=== PATIENT | female | born 2005 | race Caucasian/White ===

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

== ENCOUNTER 2024-09-19 02:02 | Emergency (ER) | payer OTHER, SELFPAY ==
[2024-09-19 02:05] VITALS: PULSE 119; O2SAT 99
[2024-09-19 02:10] VITALS: BP 113/72; PULSE 129; RESP 20; TEMP 36.8; O2SAT 97
[2024-09-19 02:15] VITALS: BMI 35.4
[2024-09-19 02:36] LABS: Basophils Percent Auto 0.1 % (0-2); Eosinophils Absolute Auto 0.1 X10*3/uL (0.0-0.4); Eosinophils Percent Auto 0.4 % (0-4); Hematocrit 36.9 % (37.0-47.0); Hemoglobin 12.1 g/dl (12.0-16.0); Imm Gran Abs Auto 0.04 X10*3/uL (0.00-0.03); Imm Gran Pct Auto 0.3 % (0.0-0.4); Lymphocytes Absolute Auto 0.5 X10*3/uL (1.2-4.9); Lymphocytes Percent Auto 3.8 % (20-40); MANUAL DIFF FLAG SCAN; Mean Corpuscular HGB Conc 32.8 g/dl (31.0-35.0); Mean Corpuscular Volume 79.4 fL (80.0-98.0); Mean Platelet Volume 8.6 fL (9.4-12.3); Monocytes Absolute Auto 0.4 X10*3/uL (0.1-1.2); Monocytes Percent Auto 2.8 % (2-11); Neutrophils Percent Auto 92.6 % (45-73); Platelet Count 351 X10*3/uL (160-400); Red Blood Count 4.65 X10*6/uL (4.20-5.50); Red Cell Distribution Width 13.8 % (11.0-16.0); SCAN SMEAR FLAG 1; White Blood Count 14.1 X10*3/uL (4.8-10.8)
--- NOTE | 2024-09-19 02:37 | ED.NAVMDI ---
HPI - Nausea/Vomiting/Diarrhea General Chief complaint: Nausea/Vomiting/Diarrhea Stated complaint: VOMITING Time Seen by Provider: 09/19/24 02:35 Source: patient Mode of arrival: ambulatory Limitations: no limitations History of Present Illness ED Provider: HPI Narrative: Patient no significant past medical history comes here for abdominal cramping with vomiting since 21:00 vomited about 7 times with cramping no fever no chills no upper respiratory symptoms no diarrhea no other family member sick Related Data Home Medications ?Medication ?Instructions ?Recorded ?Confirmed mirtazapine 15 mg tablet 22.5 mg PO BEDTIME 08/16/21 08/16/21 Previous Rx's ?Medication ?Instructions ?Recorded nitrofurantoin 100 mg PO Q12H 1 day #1 cap 08/21/21 monohydrate/macrocrystals 100 mg capsule venlafaxine 75 mg capsule,extended 75 mg PO DAILY 30 days #30 caps 08/21/21 release 24 hr ondansetron 4 mg disintegrating 4 mg PO Q6-8H PRN nausea and 09/19/24 tablet vomiting #7 tabs Allergies Allergy/AdvReac Type Severity Reaction Status Date / Time No Known Allergies Allergy Verified 09/19/24 02:17 Review of Systems Review of Systems: Yes all other systems are reviewed and are negative PMFSH Past Medical History Medical History Dissociative disorder MDD (major depressive disorder), recurrent episode, moderate Social History Social History Household Members: Family Household Members Other:: Mother and sister Housing: Apartment Do you presently have visiting nurse or other home services: No Alcohol intake: never Patient Tobacco Use Status: Never used Tobacco Smoked in Last 30 Days: No e-Cigarette/Vaping Use: Never Used Second Hand Smoke Exposure: No Use of substances other than those prescribed or required for medical reasons: No Substance Use Type: Marijuana Advance Directives: No Advance Directives Information Provided: Yes Do you have a plan to hurt others: No Plan service: No Sexual orientation: Did not discuss. Physical Exam Vital Signs: Vital Signs: Last Vital Signs Temp 98.2 F 09/19/24 02:10 Pulse 129 H 09/19/24 02:10 Resp 20 09/19/24 02:10 BP 113/72 09/19/24 02:10 Pulse Ox 97 09/19/24 02:10 O2 Del Method Room Air 09/19/24 02:10 BMI result Body Mass Index 35.4 Appearance: Alert. Oriented X3. No acute distress. Eyes: No pallor or icterus ENT: Pharynx normal. Oral Mucosa moist Neck: Normal inspection. Neck supple. CVS: Normal heart rate and rhythm. Pulses normal. Respiratory: No respiratory distress. Equal air entry bilateral, no wheezing/rales/rhonchi Abdomen: Soft and nontender. Bowel sounds are present, no mass palpable, no CVA tenderness Skin: Skin warm and dry. Normal skin color. Normal skin turgor. Extremities: No lower extremity edema. No calf tenderness Neuro: Oriented X 3. No motor deficit. Medications Administered Discontinued Medications Generic Name Dose Route Start Last Admin Trade Name Freq PRN Reason Stop Dose Admin Sodium Chloride 1,000 mls @ 999 mls/hr 09/19/24 02:41 09/19/24 05:00 Ns IV 09/19/24 03:41 Infused .Q1H1M ONE Infusion Ondansetron HCl 4 mg 09/19/24 02:41 09/19/24 02:49 Ondansetron Hcl 4 Mg/2 Ml Vial IVPUSH 09/19/24 02:42 4 mg ONCE ONE Administration Medical Decision Making Medical Decision Making [facility] Narrative: Patient has acute vomiting likely vomitus viral no significant abdominal pain responded to IV fluids and IV Zofran feeling much better taking p.o. fluids discharge patient home labs are stable Lab Data [facility] Lab Attestation statement: I reviewed the patient's lab results. 09/19/24 02:26 09/19/24 02:26 Labs: Lab Results 09/19/24 Range/Units 02:26 WBC 14.1 H (4.8-10.8) X10*3/uL RBC 4.65 (4.20-5.50) X10*6/uL Hgb 12.1 (12.0-16.0) g/dl Hct 36.9 L (37.0-47.0) % MCV 79.4 L (80.0-98.0) fL MCH 26.0 L (27.0-33.0) pg MCHC 32.8 (31.0-35.0) g/dl RDW 13.8 (11.0-16.0) % Plt Count 351 (160-400) X10*3/uL MPV 8.6 L (9.4-12.3) fL Immature Gran % (Auto) 0.3 (0.0-0.4) % Neut % (Auto) 92.6 H (45-73) % Lymph % (Auto) 3.8 L (20-40) % Bee % (Auto) 2.8 (2-11) % Eos % (Auto) 0.4 (0-4) % Baso % (Auto) 0.1 (0-2) % Lymph # (Auto) 0.5 L (1.2-4.9) X10*3/uL Bee # (Auto) 0.4 (0.1-1.2) X10*3/uL Eos # (Auto) 0.1 (0.0-0.4) X10*3/uL Baso # (Auto) 0.0 (0.0-0.2) X10*3/uL Abs Immat Gran (auto) 0.04 H (0.00-0.03) X10*3/uL Absolute Neuts (auto) 13.0 H (2.0-8.3) x10*3/uL Absolute Nucleated RBC 0.000 (0.0-0.012) X10*3/uL Nucleated RBC % (auto) 0.0 (0.0-0.2) /100WBC Smear Tech's Comments VERIFIED Sodium 139 (135-145) mmol/L Potassium 4.1 (3.3-5.1) mmol/L Chloride 105 (96-108) mmol/L Carbon Dioxide 26 (22-29) mmol/L Anion Gap 12 (12-20) BUN 13 (9-16) mg/dL Creatinine 0.72 (0.5-1.4) mg/dL Estim Creat Clear Calc 134.3 Estimated GFR > 60 Random Glucose 127 H (60-115) mg/dL Calcium 9.3 D (8.4-10.2) mg/dL Total Bilirubin 0.3 (0.0-1.0) mg/dL AST 21 (5-31) U/L ALT 23 (0-31) U/L Alkaline Phosphatase 71 (39-117) U/L Total Protein 8.5 H (6.5-8.0) g/dL Albumin 4.4 (3.5-5.0) g/dL Lipase 12 (8-78) U/L Influenza Type A (PCR) NEGATIVE (Negative) Influenza Type B (PCR) NEGATIVE (Negative) RSV RNA Qual (PCR) NEGATIVE (Negative) SARS-CoV-2 RNA (RT-PCR) NEGATIVE (Negative) Discharge Plan Discharge Clinical Impression: Acute nausea with nonbilious vomiting Patient Disposition: Home, Self-Care Instructions: Acute Nausea and Vomiting (ED) Additional Instructions: Drink plenty of fluids Take medicine for nausea and vomiting Report to ER if not better Prescriptions: New ondansetron 4 mg tablet,disintegrating 4 mg PO Q6-8H PRN (Reason: nausea and vomiting) Qty: 7 0RF No Action mirtazapine 15 mg Tablet 22.5 mg PO BEDTIME nitrofurantoin monohyd/m-cryst 100 mg Capsule 100 mg PO Q12H 1 Days Qty: 1 0RF venlafaxine 75 mg Capsule,Extended Release 24hr 75 mg PO DAILY 30 Days Qty: 30 0RF Print Language: Trinidadian
[2024-09-19] MEDS: 0.9 % Sodium Chloride 1,000 ML 999 ML IV (02:48)
[2024-09-19] MEDS: ondansetron HCL 4 MG/2 ML VIAL IVPUSH (02:49)
[2024-09-19 03:01] LABS: Alanine Aminotransferase 23 U/L (0-31); Albumin Level 4.4 g/dL (3.5-5.0); Alkaline Phosphatase 71 U/L (39-117); Anion Gap 12 (12-20); Aspartate Amino Transferase 21 U/L (5-31); Bilirubin Total 0.3 mg/dL (0.0-1.0); Blood Urea Nitrogen 13 mg/dL (9-16); Calcium 9.3 mg/dL (8.4-10.2); Carbon Dioxide 26 mmol/L (22-29); Chloride 105 mmol/L (96-108); Creatinine Clr Calc Pharmacy 134.3; Estimated Glomerular Filt Rate > 60; Glucose Random 127 mg/dL (60-115); Lipase 12 U/L (8-78); Potassium 4.1 mmol/L (3.3-5.1); Sodium 139 mmol/L (135-145); Total Protein 8.5 g/dL (6.5-8.0)
[2024-09-19 03:04] LABS: SLIDE REVIEW VERIFIED
[2024-09-19 03:20] LABS: Influenza A PCR NEGATIVE (Negative); Influenza B PCR NEGATIVE (Negative); Resp Syncy Virus RNA Qual PCR NEGATIVE (Negative); SARS COV2 PCR INHOUSE NEGATIVE (Negative)
--- NOTE | 2024-09-19 04:34 | PC.NURSE ---
Po givenPO challenged. Pt took a few sips of water and ate one cracker and feels some nausea but no vomiting. MD aware.
[2024-09-19 05:10] VITALS: BP 115/65; PULSE 131; RESP 14; TEMP 36.6; O2SAT 99
[2024-09-19 05:17] VITALS: BP 115/65; PULSE 131; RESP 14; TEMP 36.6; O2SAT 99
== END 2024-09-19 05:25 | disposition home or self-care (01) ==
PROVIDERS: Emergency Provider Internal Medicine
DX: R11.2 Nausea with vomiting, unspecified (principal); F12.90 Cannabis use, unspecified, uncomplicated; Z03.818 Encounter for observation for suspected exposure to other biological agents ruled out
CPT/HCPCS: 0241U; 80053; 83690; 85025; 96361; 96374; 99284; J2405

== ENCOUNTER 2024-12-10 11:10 | Outpatient (REF) | payer MEDICAID, SELFPAY ==
--- OUTSIDE RECORDS SUMMARY | 2024-12-10 12:32 | XMS_ITS | Encounter Summary ---
Author Organization [facility] Address [address] [place] [phone] Phone Care Team Providers Care District Leader Name Role Phone Marion Castanon MD Primary Care Provider [phone] Encounter Details Date Type Department Care Team (Late st Contact Info) Description 08/07/2012 Nurse Only [address] [id number] Social History Tobacco Use Types Packs/Day Years Used Date Smoking Tobacco: Never Assessed Comments Unknown Sex and Gender Information Value Date Recorded Sex Assigned at Not on file Legal Sex Female 4:22 PM EST Gender Identity Not on file Sexual Orientation Not on file documented as of this encounter Nursing Notes * UNKNOWN, HISTORICAL - 08/07/2012 9:22 AM EST Verenice Olivares 2005 NURSE NOTE/VERBAL ORDERS Office/Outpatient Visit Visit Date: Aug 07, 2012 09:22 am Provider: Ally Agrawal RN (Signalling And Communications Engineer: Josephine Mccoy MD; Key Carrier: Ally Agrawal RN) Location: [facility]. ECTIVE: CC: She is here for the Flu Clinic. Presents with Dad HPI: No known chronic health conditions. Fever or illness is not present today. No trouble breathing or hives after eating eggs She has not had a reaction to the flu vaccine or other immunization. Flu vaccine VIS was given today.(interim 03/10/12) There were no questions or concerns voiced at today's visit. OBJECTIVE: Exams: GENERAL APPEARANCE: Alert, active, looks well, mood appropriate RESPIRATORY: Normal respiratory rate and pattern with no distress ASSESSMENT: V04.81 Flu Clinic ORDERS: Procedures Ordered: Flu Vaccine (In-House) Immunization administration (includes percutaneous, intradermal, subcutaneous or intramuscular injec (In-House) PLAN: Flu Clinic Influenza vaccine > 3 yr given No contraindications noted for flu vaccines. Tolerated well, left office in good condition. Orders: Flu Vaccine (In-House) Immunization administration (includes percutaneous, intradermal, subcutaneous or intramuscular injec (In-House) Patient Recommendations: For Flu Clinic: Influenza (Given) CHARGE CAPTURE: Primary Diagnosis: V04.81 Flu Clinic Orders: [id number] Flu Vaccine (In-House) 13013 Immunization administration (includes percutaneous, intradermal, subcutaneous or intramuscular injec (In-House) documented in this encounter Plan of Treatment Not on file documented as of this encounter Visit Diagnoses Not on filedocumented in this encounter Care Teams District Leader Relationship Specialty Start Date End Date Marion Castanon MD [address] [place] [phone] PCP - General Pediatrics 09/18/22 07/17/23 documented as of this encounter
--- OUTSIDE RECORDS SUMMARY | 2024-12-10 12:32 | XMS_ITS | Encounter Summary ---
Author Organization [employer] Address [address] [place] [address] Care Team Providers Care Cover Mat Machine Operator Name Role Phone Jing Patel MD Primary Care Provider [phone] Encounter Details Date Type Department Care Team (Latest Contact Info) Description 12/10/2024 Travel Social History Tobacco Use Types Packs/Day Years Used Date Smoking Tobacco: Former Cigarettes Passive Smoke Exposure: Past Smokeless Tobacco: Never Depression Answer Date Recorded Patient Health Questionnaire-9 Score 14 12/10/2024 Patient Health Questionnaire-9 Score 14 12/10/2024 Last PHQ-9: Questionnaire Data Not on file 0 12/10/2024 Housing Stability Answer Date Recorded What is your housing situation today? I have robert garcia 09/16/[address] you li ve. Do you have problems with any of the following? None of the above 09/16/2024 Food Insecurity Answer Date Recorded Within the past 12 months, y ou worried that your food would run out before you got money to buy more: Sometimes True 2024 Within the past 12 months,th e food you bought just didn't last and you didn't have enough money to get more: Sometimes True 12/10/2024 Transportation Answer Date Recorded In the past 12 months, has l ack of transportation kept you from medical appts, meetings, work or from getting things needed for daily living? Yes, it has kept me from non-medical meetings, work, or getting things that I need 12/10/2024 Utilities Answer Date Recorded In the past 12 months, has t he electric, gas, oil or water company threatened to shut off services in your home? I am not sure 12/10/2024 Depression Answer Date Recorded Patient Health Questionnaire-2 Score 3 12/10/2024 Internet Access Answer Date Recorded Internet Access Q1 Yes 09/16/2024 Internet Access Q2 Not on file 09/16/2024 Comments Unknown Sex and Gender Information Value Date Recorded Sex Assigned at Female 07/09/2022 10:20 AM EDT Legal Sex Female 10:20 AM EDT Gender Identity Male 12/10/2024 10:20 AM EDT Sexual Orientation Choose not to disclose 2021 10:20 AM EDT documented as of this encounter Plan of Treatment Upcoming Encounters Date Type Department Care Team (Late st Contact Info) Description 12/16/2024 11:15 AM EDT Office Visit [facility] [address] [place] [address] Jing Patel MD [address] [place] [phone] documented as of this encounter Visit Diagnoses Not on filedocumented in this encounter Additional Health Concerns Assessment Noted Time PHQ-9 Depression Total Score: 14 025 11:33 AM EDT documented as of this encounter Care Teams Cover Mat Machine Operator Relationship Specialty Start Date End Date Jing Patel MD [address] [place], [place] [phone] PCP - General Family Medicine 08/27/24 documented as of this encounter
--- OUTSIDE RECORDS SUMMARY | 2024-12-10 12:32 | XMS_ITS | Encounter Summary ---
Author Organization [employer] Address [address] [place] [address] Care Team Providers Care Communications Executive Name Role Phone Jing Patel MD Primary Care Provider [phone] Reason for Visit * Reason Onset Date Comments chartprep 12/07/2024 Encounter Details Date Type Department Care Team ([facility] st Contact Info) Description 12/07/2024 Telephone [facility] [address] [place], [place] [phone] Jing Patel MD [address] [place], [place] [phone] chartprep Social History Tobacco Use Types Packs/Day Years Used Date Smoking Tobacco: Former Cigarettes Passive Smoke Exposure: Past Smokeless Tobacco: Never Housing Stability Answer Date Recorded What is your housing situation today? I have robert garcia 09/16/[address] you li ve. Do you have problems with any of the following? None of the above 09/16/2024 Food Insecurity Answer Date Recorded Within the past 12 months, y ou worried that your food would run out before you got money to buy more: Never True 09/16/2024 Within the past 12 months,th e food you bought just didn't last and you didn't have enough money to get more: Never True 04/2025 Transportation Answer Date Recorded In the past 12 months, has l ack of transportation kept you from medical appts, meetings, work or from getting things needed for daily living? No 09/16/2024 Utilities Answer Date Recorded In the past 12 months, has t he electric, gas, oil or water company threatened to shut off services in your home? No 09/16/2024 Internet Access Answer Date Recorded Internet Access Q1 Yes 09/16/2024 Internet Access Q2 Not on file 09/16/2024 Comments Unknown Sex and Gender Information Value Date Recorded Sex Assigned at Female 07/09/2022 10:20 AM EDT Legal Sex Female 10:20 AM EDT Gender Identity Male 12/10/2024 10:20 AM EDT Sexual Orientation Choose not to disclose 2021 10:20 AM EDT documented as of this encounter Miscellaneous Notes * Telephone Encounter - Lilian Joaquin MA - 12/07/2024 11:06 AM EDT ..Chart Prep Labs: not applicable Images: not applicable Vaccines due: Covid 19/ Influenza / Hepatitis C Referrals: Not Applicable Screenings: Not Applicable Overdue care gaps: Sbirt, SDOH, PQ9, Disability , and Oral Health documented in this encounter Plan of Treatment Upcoming Encounters Date Type Department Care Team (Late st Contact Info) Description 12/16/2024 11:15 AM EDT Office Visit [facility] [address] [place] [phone] Jing Patel MD [address] [place] [phone] documented as of this encounter Visit Diagnoses Not on filedocumented in this encounter Care Teams Communications Executive Relationship Specialty Start Date End Date Jing Patel MD [address] [place] [phone] PCP - General Family Medicine 08/27/24 documented as of this encounter
--- OUTSIDE RECORDS SUMMARY | 2024-12-10 12:32 | XMS_ITS | Clinical Summary ---
Author Organization [facility] Address [address] [place] [id number] Phone Care Team Providers Care House Cleaner Supervisor Name Role Phone Unavailable Primary Care Provider Unavailabl e Allergies No known active allergies Medications escitalopram 10 MG tablet 07/14/2021 Active mirtazapine 15 MG tablet 05/19/2021 Active Active Problems Problem Noted Date Diagnosed Date Insomnia due to other mental disorder 06/22/2020 Overview (06/22/2020): History of significant difficult with sleep ( mostly getting to sleep)--may occasionally have prolonged sleep ( 11 hours), but recently has been sleeping only 2-3 hours each night. Correlation with anxiety and depression symptoms likely. Discussed sleep hygiene issues. I suspect she will need MH intervention. Assessment & Plan (06/22/2020 2:59 PM EDT): History of significant difficult with sleep ( mostly getting to sleep)--may occasionally have prolonged sleep ( 11 hours), but recently has been sleeping only 2-3 hours each night. Correlation with anxiety and depression symptoms likely. Discussed sleep hygiene issues. I suspect she will need MH intervention. Anxiety and depression 12/16/2018 Overview (06/22/2020): History of ongoing problems with anxiety and depression. Now describes occasional panic attacks with tachycardia, shakiness, chest pain. Sleep issues also noted which are likely to be related. Discussed. Family is connected to [facility] for therapy and med management. Referral placed Assessment & Plan (06/22/2020 2:52 PM EDT): History of ongoing problems with anxiety and depression. Now describes occasional panic attacks with tachycardia, shakiness, chest pain. Sleep issues also noted which are likely to be related. Discussed. Family is connected to [facility] for therapy and med management. Referral placed Assessment & Plan (12/16/2018 1:22 PM EDT): PSC positive and Verenice reports up and down mood including feelings of sadness and worrying. No thoughts of self-harm or SI. Sibling seen at [facility], so mom has been trying to get Verenice an appointment there. Offered behavioral health services at , declined by family due to distance from home. Will request [facility] to assist with scheduling at [facility]. Discussed signs and symptoms of worsening mood (including safety concerns) that would warrant prompt follow-up or crisis. Urge incontinence of urine 10/10/2017 Overview (04/27/2018): Seen by Urology with giggle incontinence ; no specific treatment. Assessment & Plan (12/16/2018 1:03 PM EDT): Seen by urology in 2018, diagnosed with giggle incontinence . Did not return for recommended imaging or follow-up, though Verenice is still very bothered by her symptoms. Recommended returning to Urology for follow-up. Referral placed, will have referrals send along the scheduling information via [employer] per mom's request. Assessment & Plan (01/29/2018 2:45 PM EDT): Long history of daytime incontinence; typically related to laughing or coughing. May happen 2-3 times a day. Has been wearing adult diapers during the school day. Is interested in referral to consider surgical treatment. In the meantime, I would propose a trial of Ditropan prior to school. Discussed risks and benefits. Assessment & Plan (10/10/2017 12:58 PM EST): Long history of daytime incontinence, often related to laughing. Now fed up , would like to consider treatment options. Refer to Urology or Adolescent Medicine for opinion. Pure hypercholesterolemia 04/25/2016 Overview (06/22/2020): PMH + elevated cholesterol. Recheck has been ordered, but not pursued. Will reorder today. Await results. Assessment & Plan (06/22/2020 2:59 PM EDT): PMH + elevated cholesterol. Recheck has been ordered, but not pursued. Will reorder today. Await results. Assessment & Plan (12/16/2018 1:04 PM EDT): Labs ordered last year though not obtained. New lab orders placed, instructed to have drawn. Assessment & Plan (10/10/2017 12:57 PM EST): PMH + abnormal screening. Recheck as lipid panel today Elevated TSH 04/25/2016 Overview (06/22/2020): PMH + elevated TSH ( repeat labs ordered twice, but never obtained)--will reorder today Assessment & Plan (06/22/2020 2:53 PM EDT): PMH + elevated TSH ( repeat labs ordered twice, but never obtained)--will reorder today Await results. Assessment & Plan (12/16/2018 1:04 PM EDT): History of. Labs ordered last year though not obtained. New lab orders placed, instructed to have drawn. Assessment & Plan (10/10/2017 12:56 PM EST): PMH + elevated TSH. Will recheck TSH and T4 today. Body mass index, pediatric, greater than or equal to 95th percentile for age 0804/13/2016 Assessment & Plan (06/22/2020 2:52 PM EDT): Discussed appropriate nutrition and diet. Avoid non-nutritious foods and snacks. Encourage exercise. (Sixty minutes of physical exercise a day is recommended). Limit screen time. Follow-up at next [facility]. Assessment & Plan (12/16/2018 1:04 PM EDT): Reviewed and discussed nutrition and exercise recommendations. Assessment & Plan (10/10/2017 12:56 PM EST): Discussed appropriate nutrition and diet. Avoid non-nutritious foods and snacks. Encourage exercise. (Sixty minutes of physical exercise a day is recommended). Limit screen time. Follow-up at next [facility]. Previously seen by Peds Endocrine for assessment. Intrinsic eczema 12/03/2014 Assessment & Plan (10/10/2017 12:57 PM EST): Avoid irritants, lubricate the skin ( take a bath for 10-15 minutes in warm water, rinse off soap and shampoo and apply a thick lubricant ), Use a mild soap like Dove, Nutragena or Cetaphil. Avoid bubble baths. Apply moisturizers throughout the day ( the thicker the better). Use steroid creams or ointment when needed BID for up to 10 days. May decrease strength ( to 1% hydrocortisone ointment OTC) when flare-up has significantly improved. Eczema is a chronic condition associated with itching and dryness, often worse in the winter. Recurrence is common. Scratching the rash will make it worse. Resolved Problems Problem Noted Date Diagnosed Date Resolved Date Tachycardia 12/16/2018 06/22/2020 Assessment & Plan (12/16/2018 1:13 PM EDT): Reports a few episodes of heart beating fast without palpitations, dizziness or syncope. She does express mood concerns today, but denies any anxiousness during these episodes. Resolved within a few minutes. EKG today normal, will send for cardiology review. Recommended she monitor, especially in relation to her mood. If symptoms return or worsen (chest pain, palpitations, dizziness, syncope, exercise intolerance, etc), would recommend cardiology referral and consideration of holter monitor. Immunizations Immunization Administration Dates Next Due DTaP / HiB / IPV 09/14/2009,11/20/2005, 5 DTaP 5 09/26/2006,04/12/2005 HPV Vaccine 9 Valent 06/22/2020,12/16/2018 Hep A, ped/adol 06/22/2020,12/16/2018 Hep B, ped/adol 11/20/2005,01/22/2005,2004 Hib (PRP-T) 11/20/2005,04/12/2005,01/22/2005 IPV 09/14/2009, 6,11/20/2005,01/22 Influenza 08/07/2012,06/26/2012 Influenza, injectable, quadr ivalent, preservative free 06/22/2020,10/10/2017 Influenza, injectable, triva lent, preservative free 06/16/2013 Influenza, intranasal, trivalent 07/22/2014 MMR 09/14/2009,04/02/2006 Meningococcal Conj (Menactra) MCV4P 12/16/2018 Pneumococcal Conjugate 11/20/2005,04/12/2005, Tdap 10/10/2017 Varicella 09/14/2009,11/20/2005 Social History Tobacco Use Types Packs/Day Years Used Date Smoking Tobacco: Never Smokeless Tobacco: Never Hunger/Food Answer Date Recorded In the last 12 months, did y ou or your family ever eat less than you felt you should because there wasn't enough money for food? No 06/22/2020 Stable Housing Answer Date Recorded Are you worried that in the next 2 months you may not have stable housing? No 06/22/2020 Transportation Concerns Answer Date Rec orded In the last 12 months, have you or your family ever had to go without healthcare because you didn't have a way to get there? No 06/22/2020 Hazards in Home Answer Date Recorded Think about the place you li ve. Do you have problems with any of the following? Pests (mice or roaches), mold, no/not working smoke detectors, water leaks, no window guards. No 2019 Financing Utilities Answer Date Recorde d In the last 12 months, has t he electric, gas, oil, or water company threatened to shut off your services in your home? No 06/22/2020 Safety at Home Answer Date Recorded Are you or your family worried about feeling saf e in your home? No 06/22/2020 Outside Support Answer Date Recorded Do you feel that you need mo re support from other people or programs to help you care for yourself or your family? No 06/22/2020 Understanding Health Concerns Answer Da te Recorded Do you need help understandi ng your or your child's healthcare needs (diagnosis, medications, plan, etc.)? No 06/22/2020 Financing Health Concerns Answer Date R ecorded In the last 12 months, was t here a time when your child needed to see a doctor or get medications or supplies but could not because of cost? No 06/22/2020 Missing School or Work Answer Date Sky rded Did you or your child miss s chool or work because of a health problem that could have been avoided? No 06/22/2020 Comments Unknown Sex and Gender Information Value Date Recorded Sex Assigned at Not on file Legal Sex Female 4:22 PM EST Gender Identity Not on file Sexual Orientation Not on file Last Filed Vital Signs Vital Sign Reading Time Taken Comments Blood Pressure 116/62 06/22/2020 1:31 PM EDT Pulse 62 06/22/2020 1:31 PM EDT Temperature 36.7 ??C (98.1 ??F) 01/29/2018 2:11 PM ED T Respiratory Rate 18 12/16/2018 9:32 AM EDT Oxygen Saturation 96% 11/18/2014 11:09 AM EDT Inhaled Oxygen Concentration - - Weight 77.1 kg (170 lb) 06/22/2020 1:31 PM EDT Height 154 cm (5' 0.63 ) 06/22/2020 1:31 PM EDT Body Mass Index 32.51 06/22/2020 1:31 PM EDT Plan of Treatment Health Maintenance Due Date Last Done Comments Men B Vaccine (1 of 2 - Standard) 2020 Influenza Vaccines (#1) 2024 08/18/20 21, 06/22/2020, 10/10/2017, Additional history exists COVID-19 Vaccine (3 - season) 2024 04/12/2021, 03/22/2021 DTaP,Tdap,and Td Vaccines (7 - Td or Tdap) 10/10/2027 10/10/2017, 09/14/2009, 09/26/2006, Additional history exists Hepatitis B Vaccines Completed 11/20/2005, 01/22/2005, 2004 Pneumococcal Vaccine Completed 11/20/2005, 04/12/2005, 01/22/2005 HIB Vaccines Completed 09/14/2009, 11/07, 11/20/2005, Additional history exists IPV Vaccines Completed 09/14/2009, 02/2010, 04/02/2006, Additional history exists MMR Vaccines Completed 09/14/2009, 04/02/2006 Varicella Vaccines Completed 09/14/2009, 11/20/2005 Meningococcal Vaccine Aged Out 12/16/2018 No nuria chantal eligible based on patient's age to complete this topic HPV Vaccines Completed 06/22/2020, 12/16/2018 Hepatitis A Vaccines Completed 06/22/2020, 12/17/19 19 Insurance [facility] Address: [facility] [address] [place] [address]
--- OUTSIDE RECORDS SUMMARY | 2024-12-10 12:32 | XMS_ITS | Encounter Summary ---
Author Organization [employer] Address [address] [place] [address] Care Team Providers Care Chief Strategy Officer Name Role Phone Jing Patel MD Primary Care Provider [phone] Reason for Visit * Reason Comments Annual Exam Encounter Details Date Type Department Care Team ([facility] Contact Info) Description 12/10/2024 10:00 AM EDT Office Visit [facility] [address], [place] [phone] Jing Patel MD [address] [place] [address] Gender dysphoria (Primary Dx); Family planning; [id number] transgender person; Pure hypercholesterolemia; Elevated TSH; Anxiety and depression; Class 2 obesity due to excess calories with body mass index (BMI) of 38.0 to 38.9 in adult, unspecified whether serious comorbidity present; Dietary counseling; Exercise counseling; Other specified health status; Routine screening for STI (sexually transmitted infection) Social History Tobacco Use Types Packs/Day Years [...] the past 12 months, has t he [employer], gas, oil or water company threatened to [...] AM EDT documented as of this encounter Last Filed Vital Signs Vital Sign Reading Time Taken Comments Blood Pressure 129/67 12/10/2024 10:04 AM EDT Pulse 93 12/10/2024 10:04 AM EDT Temperature 37.2 ??C (98.9 ??F) 12/10/2024 10:04 AM E DT Respiratory Rate 20 12/10/2024 10:04 AM EDT Oxygen Saturation 98% 12/10/2024 10:04 AM EDT Inhaled Oxygen Concentration - - Weight 94.4 kg (208 lb 3.2 oz) 12/10/2024 10:04 AM EDT Height 156.8 cm (5' 1.75 ) 12/10/2024 10:04 AM E DT Body Mass Index 38.39 12/10/2024 10:04 AM EDT documented in this encounter Miscellaneous Notes * Assessment & Plan Note - Marion Marin - 12/10/2024 10:54 AM EDTAssociated Problem(s): Pure hypercholesterolemia PMH + elevated cholesterol. -ordered HFP and FLP 12/10/24 * Assessment & Plan Note - Marion Marin - 12/10/2024 10:54 AM EDTAssociated Problem(s): Elevated TSH PMH + elevated TSH. -ordered TSH 12/10/24 * Assessment & Plan Note - Marion Marin - 12/10/2024 10:52 AM EDTAssociated Problem(s): Gender dysphoria Transgender, identifying as male since 10 yo. Over the last two years, after reaching the age of 17, the patient has been showing a strong interest in pursuing medical transition options. Desiring gender-affirming treatment. Discussed hormone replacement therapy, surgical interventions and family planning. Interested in starting hormone replacement, breast augmentation, changing his name and control. -ordered labs 12/10/24, will see back in 1 week for follow-up to discuss further treatment options. -referred to [facility] for control options 12/10/24 -discussed getting letter from therapist for appropriating further progression into breast augmentation surgery 12/10/24 * Assessment & Plan Note - Marion Marin - 12/10/2024 10:45 AM EDTAssociated Problem(s): Vujahb-au-jhyf transgender person Patient has expressed constant and persistent desire to transition from female to male since age 10, identifying as transgender. This gender identity has been explored with the support of the patient's mother who has been supportive throughout the process. Over the last two years, after reaching the age of 17, the patient has been showing a strong interest in pursuing medical transition options. Desiring gender-affirming treatment. -been following with a therapist in [facility], not specializing in gender- affirming care, but has been open and supportive with patients discussions. * Assessment & Plan Note - Marion Marin - 12/10/2024 10:40 AM EDTAssociated Problem(s): Family planning -pt does not desire within the next 12 months -discussed efficacies, benefits and risks of available contraceptive means available including IUD,subdermal implantable device, injection, combination oral contraceptives, patch, vaginal ring and condoms. -patient interested in IUD. -indications for Prep disused, -condoms offered -referred to [facility]. 12/10/24 * Assessment & Plan Note - Marion Marin - 12/10/2024 10:34 AM EDTAssociated Problem(s): Anxiety and depression History of ongoing problems with anxiety and depression. Now describes occasional panic attacks with tachycardia, shakiness, chest pain. Sleep issues also noted which are likely to be related. Discussed. Family is connected to [facility] for therapy and med management. * Assessment & Plan Note - Marion Marin - 12/10/2024 10:20 AM EDTAssociated Problem(s): Exercise counseling Exercise Recommendations: At least 150 minutes of moderate-intensity physical activity per week, or an equivalent combinationof moderate- and vigorous-intensity activity. * Assessment & Plan Note - Marion Marin - 12/10/2024 10:20 AM EDTAssociated Problem(s): Dietary counseling Dietary Recommendations: Fruits, vegetables, whole grains, protein foods, and fat-free or low-fat dairy products are healthychoices. Eat different types of protein foods in your diet. This can include seafood, lean meats, poultry, beans, peas, lentils, nuts, seeds, soy products, and eggs. Limit foods and beverages higher in added sugars, saturated fat, and sodium. * Assessment & Plan Note - Marion Marin - 12/10/2024 10:19 AM EDTAssociated Problem(s): Class 2 obesity due to excess calories with body mass index (BMI) of 38.0 to38.9 in adult Discussed weight, diet, exercise with patient in relation to health conditions. Used motivational interviewing to illicit change talk and established initial goals with patient. -ordered BMP, CBC, A1C and Vit D 12/10/24 * Assessment & Plan Note - Marion Marin - 12/10/2024 10:19 AM EDTAssociated Problem(s): Other specified health status -next comprehensive annual evaluation due after 12/10/24 -Not seeing eyeglass assembler. -Dental home encouraged 12/10/24. -amaris care proxy given and filed 12/10/24 documented in this encounter Plan of Treatment Upcoming Encounters Date Type Department Care Team (Late st Contact Info) Description 12/16/2024 11:15 AM EDT Office Visit [facility] MEDICINE [address] [place] [phone] Jing Patel MD [address] [place] [address] Scheduled Orders Name Type Priority Associated Diagnoses Orde r Schedule Lipid Panel, Standard Lab Routine Pure hypercholesterolemia Expected: 12/10/2024 (Approximate), Expires: 12/10/2025 Basic Metabolic Panel Lab Routine Anxiety and depression Expected: 12/10/2024 (Approximate), Expires: 12/10/2025 Hepatic Function Panel Lab Routine Anxiety and depression Expected: 12/10/2024 (Approximate), Expires: 12/10/2025 CBC auto differential Lab Routine Anxiety and depression Expected: 12/10/2024 (Approximate), Expires: 12/10/2025 Hemoglobin A1c Lab Routine Anxiety and depression Expected: 12/10/2024 (Approximate), Expires: 12/10/2025 TSH with Reflex to Free T4 Lab Routine Elevated TSH Expected: 12/10/2024 (Approximate), Expires: 12/10/2025 Vitamin D, 25-Hydroxy, Total, Immunoassay Lab Routine Anxiety and depression Expected: 12/10/2024 (Approximate), Expires: 12/10/2025 HIV-1/2 Antigen and Antibodies, Fourth Generation, with Reflexes Lab Routine Routine screening for STI (sexually transmitted infection) Expected: 12/10/2024 (Approximate), Expires: 12/10/2025 Syphilis Screen Lab Routine Routine screening for STI (sexually transmitted infection) Expected: 12/10/2024 (Approximate), Expires: 12/10/2025 Hepatitis C Antibody with Reflex to HCV, RNA, Quantitative, Real-Time PCR Lab Routine Routine screening for STI (sexually transmitted infection) Expected: 12/10/2024 (Approximate), Expires: 12/10/2025 Chlamydia/N. Gonorrhoeae RNA, TMA, Urine Microbiology Routine Routine screening for STI (sexually transmitted infection) Expected: 12/10/2024 (Approximate), Expires: 12/10/2025 documented as of this encounter Visit Diagnoses Diagnosis Gender dysphoria- Primary Family planning Other general counseling and advice for contraceptive management [id number] transgender person Pure hypercholesterolemia Elevated TSH Other abnormal blood chemistry Anxiety and depression Class 2 obesity due to excess calories with body mass index (BMI) of 38.0 to 38.9 in adult, unspecified whether serious comorbidity present Dietary counseling Dietary surveillance and counseling Exercise counseling Other specified health status Routine screening for STI (sexually transmitted infection) Screening examination for venereal disease documented in this encounter Additional Health Concerns Assessment Noted Time PHQ-9 Depression Total Score: 14 025 11:33 AM EDT documented as of this encounter Care Teams Chief Strategy Officer Relationship Specialty Start Date End Date Jing Patel MD [address] [place] [phone] PCP - General Family Medicine 08/27/24 documented as of this encounter
--- OUTSIDE RECORDS SUMMARY | 2024-12-10 12:32 | XMS_ITS | Encounter Summary ---
Author Organization [facility] Address [address] [place] [phone] Phone Care Team Providers Care Client Service Coordinator Name Role Phone Marion Castanon MD Primary Care Provider [phone] Encounter Details Date Type Department Care Team (Late st Contact Info) Description 07/22/2014 Nurse Only [address] [phone] Social History Tobacco Use Types Packs/Day Years Used Date Smoking Tobacco: Never Assessed Comments Unknown Sex and Gender Information Value Date Recorded Sex Assigned at Not on file Legal Sex Female 4:22 PM EST Gender Identity Not on file Sexual Orientation Not on file documented as of this encounter Nursing Notes * UNKNOWN, HISTORICAL - 07/22/2014 5:03 PM EST Verenice Olivares 2005 NURSE NOTE/VERBAL ORDERS Office/Outpatient Visit Visit Date: Jul 22, 2014 05:03 pm Provider: Sameera Lopez RN (Newspaper Correspondent: Yvette Germain MD; Physical Science Aide: Sameera Lopez RN) Location: [facility]. ECTIVE: CC: She is here for the Flu Clinic. HPI: No known chronic health conditions. Fever or illness is not present today. No trouble breathing or hives after eating eggs She has not had a reaction to the flu vaccine or other immunization. Flu vaccine VIS was given today.(interim 04/27/14) There were no questions or concerns voiced at today's visit. ASSESSMENT: V04.81 Flu Clinic ORDERS: Procedures Ordered: Immunization administration by intranasal or oral route; one vaccine (single or combination) (In-House) Other Orders: Influenza virus vac quadrivalent live intranasal (In-House) PLAN: Flu Clinic Influenza intranasal vaccine given No contraindications noted for flu vaccines. Tolerated well, left office in good condition. Orders: Influenza virus vac quadrivalent live intranasal (In-House) Immunization administration by intranasal or oral route; one vaccine (single or combination) (In-House) Patient Recommendations: For Flu Clinic: Influenza (Given) CHARGE CAPTURE: Primary Diagnosis: V04.81 Flu Clinic Orders: [id number] Influenza virus vac quadrivalent live intranasal (In-House) [id number] Immunization administration by intranasal or oral route; one vaccine (single or combination) (In-House) documented in this encounter Plan of Treatment Not on file documented as of this encounter Visit Diagnoses Not on filedocumented in this encounter Care Teams Client Service Coordinator Relationship Specialty Start Date End Date Marion Castanon MD [address] [place] [phone] PCP - General Pediatrics 09/18/22 07/17/23 documented as of this encounter
--- OUTSIDE RECORDS SUMMARY | 2024-12-10 12:33 | XMS_ITS | Clinical Summary ---
Author Organization [employer] Address [address] [place] [address] Care Team Providers Care Machinist Brake Name Role Phone Jing Patel MD Primary Care Provider [phone] Allergies No known active allergies Medications No known medications Active Problems Problem Noted Date Diagnosed Date Class 2 obesity due to exces s calories with body mass index (BMI) of 38.0 to 38.9 in adult 12/10/2024 Overview (12/10/2024): Discussed weight, diet, exercise with patient in relation to health conditions. Used motivational interviewing to illicit change talk and established initial goals with patient. -ordered BMP, CBC, A1C and Vit D 12/10/24 Assessment & Plan (12/10/2024 10:55 AM EDT): Discussed weight, diet, exercise with patient in relation to health conditions. Used motivational interviewing to illicit change talk and established initial goals with patient. -ordered BMP, CBC, A1C and Vit D 12/10/24 Dietary counseling 12/10/2024 Assessment & Plan (12/10/2024 10:20 AM EDT): Dietary Recommendations: Fruits, vegetables, whole grains, protein foods, and fat-free or low-fat dairy products are healthy choices. Eat different types of protein foods in your diet. This can include seafood, lean meats, poultry, beans, peas, lentils, nuts, seeds, soy products, and eggs. Limit foods and beverages higher in added sugars, saturated fat, and sodium. Exercise counseling 12/10/2024 Assessment & Plan (12/10/2024 10:20 AM EDT): Exercise Recommendations: At least 150 minutes of moderate-intensity physical activity per week, or an equivalent combination of moderate- and vigorous-intensity activity. [id number] transgender person 12/10/2024 Overview (12/10/2024): Patient has expressed constant and persistent desire [...] treatment. -been following with a therapist in [facility], not specializing in gender-affirming care, but has been open and supportive with patients discussions. Assessment & Plan (12/10/2024 10:47 AM EDT): Patient has expressed constant and persistent desire [...] treatment. -been following with a therapist in [facility], not specializing in gender-affirming care, but has been open and supportive with patients discussions. Gender dysphoria 12/10/2024 Overview (12/10/2024): Transgender, identifying as male since 10 yo. [...] to discuss further treatment options. -referred to Manas Bedolla for control options 12/10/24 -discussed getting letter from therapist for appropriating further progression into breast augmentation surgery 12/10/24 Assessment & Plan (12/10/2024 10:52 AM EDT): Transgender, identifying as male since 10 yo. [...] to discuss further treatment options. -referred to Manas Bedolla for control options 12/10/24 -discussed getting letter from therapist for appropriating further progression into breast augmentation surgery 12/10/24 Family planning 12/10/2024 Overview (12/10/2024): -pt does not desire within the next 12 months -discussed efficacies, benefits and risks of available contraceptive means available including IUD, subdermal implantable device, injection, combination oral contraceptives, patch, vaginal ring and condoms. -patient interested in IUD. -indications for Prep disused, -condoms offered -referred to Chioma Malagon. 12/10/24 Assessment & Plan (12/10/2024 10:40 AM EDT): -pt does not desire within the next 12 months -discussed efficacies, benefits and risks of available contraceptive means available including IUD, subdermal implantable device, injection, combination oral contraceptives, patch, vaginal ring and condoms. -patient interested in IUD. -indications for Prep disused, -condoms offered -referred to Chioma Malagon. 12/10/24 Other specified health status 09/11/2024 Overview (12/10/2024): -next comprehensive annual evaluation due after 12/10/24 -Not seeing human resources benefits specialist. -Dental home encouraged 12/10/24. -[facility] care proxy given and filed 12/10/24 Assessment & Plan (12/10/2024 10:19 AM EDT): -next comprehensive annual evaluation due after 12/10/24 -Not seeing human resources benefits specialist. -Dental home encouraged 12/10/24. -[facility]aris care proxy given and filed 12/10/24 Insomnia due to other mental disorder 06/22/2020 Overview (09/11/2024): History of significant difficult with sleep ( mostly getting to sleep)--may occasionally have prolonged sleep ( 11 hours), but recently has been sleeping only 2-3 hours each night. Correlation with anxiety and depression symptoms likely. Anxiety and depression 12/16/2018 Overview (09/11/2024): History of ongoing problems with anxiety and depression. Now describes occasional panic attacks with tachycardia, shakiness, chest pain. Sleep issues also noted which are likely to be related. Discussed. Family is connected to [facility] for therapy and med management. Assessment & Plan (12/10/2024 10:34 AM EDT): History of ongoing problems with anxiety and depression. Now describes occasional panic attacks with tachycardia, shakiness, chest pain. Sleep issues also noted which are likely to be related. Discussed. Family is connected to [facility] for therapy and med management. Pure hypercholesterolemia 04/25/2016 Overview (12/10/2024): PMH + elevated cholesterol. -ordered HFP and FLP 12/10/24 Assessment & Plan (12/10/2024 10:54 AM EDT): PMH + elevated cholesterol. -ordered HFP and FLP 12/10/24 Elevated TSH 04/25/2016 Overview (12/10/2024): PMH + elevated TSH. -ordered TSH 12/10/24 Assessment & Plan (12/10/2024 10:54 AM EDT): PMH + elevated TSH. -ordered TSH 12/10/24 Intrinsic eczema 12/03/2014 Overview (09/11/2024): Avoid irritants, lubricate the skin ( take [...] Scratching the rash will make it worse. Encounters Date Type Department Care Team Description 12/10/2024 10:00 AM EDT Office Visit [address] [address] Jing Patel MD Gender dysphoria (Primary Dx); Family planning; [id number] transgender person; Pure hypercholesterolem ia; Elevated TSH; Anxiety and depression; Class 2 obesity due to excess calories with body mass index (BMI) of 38.0 to 38.9 in adult, unspecified whether serious comorbidity present; Dietary counseling; Exercise counseling; Other specified health status; Routine screening for STI (sexually transmitted infection) 12/10/2024 Travel 12/07/[address] [address] Jing Patel MD chartprep 12/01/2024 Patient Outreach [address] [address] Jing Patel MD Pre-visit Planning (SDOH screening was completed on 09/16/2024) 11/20/2024 Population Health Risk Score [facility] Department [address] [place] [phone] Provider, Population Health Generic 09/25/[address] [address] Jing Patel MD No Show 09/24/[address] [address] Lilian Joaquin MA chartprep 09/16/2024 Patient Outreach [address] [address] Jing Patel MD Pre-visit Planning (SDOH Screening negative and Tobacco screening negative) from Last 3 Months Immunizations Name Administration Dates Next Due DTaP / HiB / IPV 09/14/2009,11/20/2005, 5 DTaP, 5 pertussis antigens 09/26/2006,04/12/2005 HPV 9-Valent 06/22/2020,12/16/2018 Hep A, ped/adol, 2 dose 06/22/2020,12/16/2018 Hep B, Adolescent or Pediatric 11/20/2005,2004,2004 Hib (PRP-T) 11/20/2005,04/12/2005,01/22/2005 IPV 09/14/2009, 6,11/20/2005,01/22 Influenza injectable quadriv alent preservative free 08/08/2023,08/18/2021,06/22/2020,10/10 Influenza, Unspecified 08/07/2012,06/26/2012 Influenza, live, intranasal 07/22/2014 Influenza, seasonal, injecta ble, preservative free 06/16/2013 MMR 09/14/2009,04/02/2006 Meningococcal MCV4P [id number]-135 12/16/2018 Pneumococcal Conjugate PCV 7 11/20/2005,04/12/20 05,01/22/2005 Tdap 10/10/2017 Varicella 09/14/2009,11/20/2005 Family History Medical History Relation Name Comments Hyperlipidemia Father Diabetes Maternal Grandfather Heart disease Maternal Grandfather Thyroid cancer Mother Breast cancer Mother's Sister Diabetes Paternal Grandfather Asthma Sister Seizures Sister Relation Name Status Comments Father Maternal Grandfather Mother Mother's Sister Paternal Grandfather Sister Social History Tobacco Use Types Packs/Day Years Used Date Smoking Tobacco: Former Cigarettes Passive Smoke Exposure: Past Smokeless Tobacco: Never Tobacco Cessation:Counseling Given: Not Answered Depression Answer Date Recorded Patient Health Questionnaire-9 [...] not to disclose 2021 10:20 AM EDT Last Filed Vital Signs Vital Sign Reading [...] Mass Index 38.39 12/10/2024 10:04 AM EDT Plan of Treatment Upcoming Encounters Date Type Department Care Team (Late st Contact Info) Description 12/16/2024 11:15 AM EDT Office Visit [facility] [address] [place] [address] Jing Patel MD [address] [place] [address] Health Maintenance Due Date Last Done Comments Chlamydia and Gonorrhea Screening 2004 HIV Screening 2004 Lipid Panel 2004 Family Planning (PISQ) 11/14/2019 Hepatitis C Screening 2022 COVID-19 Vaccine ( season) 2024 08/08/2023, 04/12/2021, 03/22/2021 Influenza Vaccine (#1) 2024 , 08/18/2021, 06/22/2020, Additional history exists Depression Monitoring (PHQ-9) 06/11/2025 12/10/2024, 12/10/2024 Alcohol/Substance Use Screening 12/10/2025 12/10/2024 Depression Screening 12/10/2025 12/10/2024, 12/11/19 25 SDOH Screening 12/10/2025 12/10/2024 Tobacco Screening 12/10/2025 12/10/2024 DTaP/Tdap/Td Vaccines (7 - Td or Tdap) 10/10/2027 10/10/2017, 09/14/2009, 09/26/2006, Additional history exists Zoster Vaccines (1 of 2) 2054 RSV Patients and Patients Aged 60 years or older (1 - 1-dose 75+ series) 11/14/2079 Hepatitis B Vaccines Completed 11/20/2005, 01/22/2005, 2004 Pneumococcal Vaccine: Pediatrics (0 to 5 Years) and At-Risk Patients (6 to 49) Years) Aged Out 11/20/2005, 04/12/2005, 01/22/2005 No longer eligible based on patient's age to complete this topic HIB Vaccines Completed 09/14/2009, 11/07, 11/20/2005, Additional history exists IPV Vaccines Completed 09/14/2009, 02/2010, 04/02/2006, Additional history exists Meningococcal Vaccine Aged Out 12/16/2018 No nuria chantal eligible based on patient's age to complete this topic HPV Vaccines Completed 06/22/2020, 12/16/2018 Hepatitis A Vaccines Completed 06/22/2020, 12/17/19 19 RSV under 20 months Aged Out No longe r eligible based on patient's age to complete this topic Rotavirus Vaccines Aged Out No longer eligible based on patient's age to complete this topic Insurance [employer] Care Teams Machinist Brake Relationship Specialty Start Date End Date Coleman, MD Jing [address] [facility] [place] [id number] PCP - General Family Medicine 08/27/24
--- OUTSIDE RECORDS SUMMARY | 2024-12-10 12:33 | XMS_ITS | Encounter Summary ---
Author Organization [facility] Address [address] [place] [address] Phone Care Team Providers Care Satellite Dish Repairer Name Role Phone Marion Castanon MD Primary Care Provider [phone] Encounter Details Date Type Department Care Team (Late st Contact Info) Description 06/26/2012 Nurse Only [address] [address] Social History Tobacco Use Types Packs/Day Years Used Date Smoking Tobacco: Never Assessed Comments Unknown Sex and Gender Information Value Date Recorded Sex Assigned at Not on file Legal Sex Female 4:22 PM EST Gender Identity Not on file Sexual Orientation Not on file documented as of this encounter Nursing Notes * UNKNOWN, HISTORICAL - 06/26/2012 11:21 AM EDT Verenice Olivares 2004 NURSE NOTE/VERBAL ORDERS Office/Outpatient Visit Visit Date: Jun 26, 2012 11:21 am Provider: Ally Agrawal RN (Front Desk Assistant: Yvette Germain MD; Bottle Packing Machine Cleaner: Ally Agrawal RN) Location: [facility]. ECTIVE: CC: She is here for the Flu Clinic. Presents with Mom and Dad HPI: No known chronic health conditions. [...] Tolerated well, left office in good condition. Patient needs to return for second dose >/= 28 days. Orders: Flu Vaccine (In-House) Immunization administration (includes percutaneous, intradermal, subcutaneous or intramuscular injec (In-House) Patient Recommendations: For Flu Clinic: Influenza (Given) CHARGE CAPTURE: Primary Diagnosis: V04.81 Flu Clinic Orders: [id number] Flu Vaccine (In-House) [id number] Immunization administration (includes percutaneous, intradermal, subcutaneous or intramuscular injec (In-House) documented in this encounter Plan of Treatment Not on file documented as of this encounter Visit Diagnoses Not on filedocumented in this encounter Care Teams Satellite Dish Repairer Relationship Specialty Start Date End Date Marion Castanon MD [address] [place] [id number] PCP - General Pediatrics 09/18/22 07/17/23 documented as of this encounter
[2024-12-10 13:33] LABS: MANUAL DIFF FLAG NO
[2024-12-10 13:41] LABS: Basophils Absolute Auto 0.1 X10*3/uL (0.0-0.2); Basophils Percent Auto 0.5 % (0-2); Eosinophils Absolute Auto 0.5 X10*3/uL (0.0-0.4); Eosinophils Percent Auto 4.6 % (0-4); Hematocrit 38.5 % (37.0-47.0); Hemoglobin 11.7 g/dl (12.0-16.0); Imm Gran Abs Auto 0.03 X10*3/uL (0.00-0.03); Imm Gran Pct Auto 0.3 % (0.0-0.4); Lymphocytes Absolute Auto 4.2 X10*3/uL (1.2-4.9); Lymphocytes Percent Auto 42.7 % (20-40); Mean Corpuscular HGB Conc 30.4 g/dl (31.0-35.0); Mean Corpuscular Hemoglobin 25.1 pg (27.0-33.0); Mean Corpuscular Volume 82.4 fL (80.0-98.0); Mean Platelet Volume 9.1 fL (9.4-12.3); Monocytes Absolute Auto 0.7 X10*3/uL (0.1-1.2); Monocytes Percent Auto 6.7 % (2-11); Neutrophils Absolute Auto 4.4 x10*3/uL (2.0-8.3); Neutrophils Percent Auto 45.2 % (45-73); Platelet Count 423 X10*3/uL (160-400); Red Blood Count 4.67 X10*6/uL (4.20-5.50); Red Cell Distribution Width 14.3 % (11.0-16.0); White Blood Count 9.8 X10*3/uL (4.8-10.8)
[2024-12-10 13:55] LABS: Estimated Average Glucose 111 mg/dL; Hemoglobin A1c % 5.5 % (<6.0); Total Hemoglobin (HGBA1C) 3167.4852 umol/L
[2024-12-10 14:01] LABS: Alanine Aminotransferase 44 U/L (0-31); Albumin Level 4.3 g/dL (3.5-5.0); Alkaline Phosphatase 76 U/L (39-117); Anion Gap 12 (12-20); Aspartate Amino Transferase 27 U/L (5-31); Bilirubin Direct < 0.2 mg/dL (0.0-0.5); Bilirubin Total 0.2 mg/dL (0.0-1.0); Blood Urea Nitrogen 9 mg/dL (9-16); Calcium 9.1 mg/dL (8.4-10.2); Carbon Dioxide 27 mmol/L (22-29); Chloride 106 mmol/L (96-108); Cholesterol 195 mg/dL (<200); Estimated Glomerular Filt Rate > 60; Glucose Random 85 mg/dL (60-115); HDL Cholesterol 40 mg/dL (>40); LDL Cholesterol Calculated 116 mg/dL (<100); Potassium 4.1 mmol/L (3.3-5.1); Sodium 141 mmol/L (135-145); Total Protein 7.8 g/dL (6.5-8.0); Triglycerides 195 mg/dL (<150)
[2024-12-10 14:15] LABS: Syphilis Screen Nonreactive (Nonreactive)
[2024-12-10 14:18] LABS: HIV AB/AG Nonreactive (Nonreactive); HIV Num 1 0.07 S/CO (0.00-0.99); ~HepC Num1 0.13 S/CO (0.00-0.79); ~Hepatitis C Antibody Nonreactive (Nonreactive)
[2024-12-10 14:36] LABS: TSH reflex Free T4 4.26 uIU/mL (0.32-4.0); Vitamin D 25-OH Total 24.1 ng/mL (>30)
[2024-12-10 15:48] LABS: Free T4 (Free Thyroxine) 1.17 ng/dL (0.71-1.85)
[2024-12-10 16:42] LABS: CT PCR NOT DETECTED (Not Detect.); NG PCR NOT DETECTED (Not Detect.)
== END 2024-12-10 11:11 | disposition home or self-care (01) ==
LOC: HO.HHCL 11:10
PROVIDERS: Visit Provider Family Medicine
DX: F41.9 Anxiety disorder, unspecified (principal); F32.A Depression, unspecified; Z11.3 Encounter for screening for infections with a predominantly sexual mode of transmission; E78.00 Pure hypercholesterolemia, unspecified; R79.89 Other specified abnormal findings of blood chemistry
CPT/HCPCS: 80048; 80061; 80076; 82306; 83036; 84439; 84443; 85025; 86780; 86803; 87389; 87491; 87591

== ENCOUNTER 2025-04-14 13:20 | Outpatient (REF) | payer MEDICAID, SELFPAY ==
--- OUTSIDE RECORDS SUMMARY | 2025-04-14 13:52 | XMS_ITS | Encounter Summary ---
Author Organization [facility] Address [address] [place] [phone] Phone Care Team Providers Care Solar Consultant Name Role Phone Marion Castanon MD Primary Care Provider [phone] Encounter Details Date Type Department Care Team (Late st Contact Info) Description 08/07/2012 Nurse Only [address] [address] Social History Tobacco Use Types Packs/Day Years [...] 2012 09:22 am Provider: Ally Agrawal RN (Case Manager Specialist: Josephine Mccoy MD; County Director Welfare: Ally Agrawal RN) Location: [facility]. ECTIVE: CC: She is here for [...] CAPTURE: Primary Diagnosis: V04.81 Flu Clinic Orders: [id number] Flu Vaccine (In-House) [id number] Immunization administration (includes percutaneous, intradermal, subcutaneous or intramuscular injec (In-House) documented in this encounter Plan of Treatment Not on file documented as of this encounter Visit Diagnoses Not on filedocumented in this encounter Care Teams Solar Consultant Relationship Specialty Start Date End Date Marion Castanon MD [address] [place] [id number] PCP - General Pediatrics 09/18/22 07/17/23 documented as of this encounter
--- OUTSIDE RECORDS SUMMARY | 2025-04-14 13:52 | XMS_ITS | Clinical Summary ---
Author Organization [facility] Address [address] [place] [address] Phone Care Team Providers Care Tray Checker Name Role Phone Hansel Germain MD Primary Care Provider Social History Tobacco Use Types Packs/Day Years Used Date Smoking Tobacco: Never Assessed Education Answer Date Recorded Are you interested in more education? Not on radha e 03/05/2024 Are you concerned about learning? Not on file 03/05/2024 No 03/05/2024 No 03/05/2024 Digital Access Answer Date Recorded No 03/05/2024 No 03/05/2024 Reliable internet access at home? Not on file 03/05/2024 Device with a working camera? Not on file Comments Unknown Sex and Gender Information Value Date Recorded Sex Assigned at Not on file Legal Sex Female 8:43 PM EDT Gender Identity Transgender Male 11/20/2023 2:50 PM EDT Sexual Orientation Not on file Plan of Treatment Health Maintenance Due Date Last Done Comments MMR VACCINES (1 of 1 - Stand katlyn series) 2005 DEVELOPMENTAL/BEHAVIORAL SCR EENING (PHQ, PSC, or SWYC) 11/14/2007 COMBINED DTaP,Tdap,Td (1 - Tdap) 11/14/2011 DEPRESSION SCREENING 2016 SMOKING Hx and SMOKELESS TOB ACCO SCREENING 2017 VARICELLA VACCINES (1 of 2 - 13+ 2-dose series) 2017 HPV VACCINES (1 - 3-dose series) 11/14/2019 CHLAMYDIA SCREENING 2020 MENINGOCOCCAL VACCINES (B) ( 1 of 2 - Standard) 2020 ADOLESCENT UNIVERSAL LIPID SCREENING 2021 HEPATITIS C SCREENING 2022 HIV ONE-TIME SCREENING (18-6 5 YEARS) 2022 COVID-19 VACCINE (2023-2 5 season) 2024 HEPATITIS A VACCINES Aged Out No long er eligible based on patient's age to complete this topic HIB VACCINES Aged Out No longer eligi ble based on patient's age to complete this topic MENINGOCOCCAL VACCINES (ACWY) Aged Out No longer eligible based on patient's age to complete this topic PNEUMOCOCCAL VACCINES (0-49 years) Aged Out No longer eligible based on patient's age to complete this topic Medical Devices Not on file Insurance [facility] Care Teams Tray Checker Relationship Specialty Start Date End Date Hansel Germain MD [address] [place] [address] PCP - General 06/25/17 Additional Source Comments The information contained in this document represents components of the legal health record. It is not the complete legal health record.[facility]
--- OUTSIDE RECORDS SUMMARY | 2025-04-14 13:52 | XMS_ITS | Clinical Summary ---
Author Organization [employer] Address [address] [facility] [address] [place] [address] Care Team Providers Care Computer Network Specialist Name Role Phone Jing Patel MD Primary Care Provider [phone] Allergies No known active allergies Medications cholecalcifer ol (Vitamin D-3) 25 MCG (1000 UT) tabletIndicat ions:Vitamin D Deficiency Take 1 tablet (25 mcg) by mouth Once per day. 90 tablet 3 025 2025 Active Alcohol Swabs (Alcohol Pads) 70 % padsIndicatio ns:Gender dysphoria Use weekly Use on skin before injection 100 each 11 025 Active BD [employer] miscIndicatio ns:Gender dysphoria Use for needles 1 each 025 Active testosterone cypionate (Depo-Testost erone) 200 MG/ML injectionIndi cations:Gende r dysphoria INJECT 0.5 ML INTRAMUSCULARLY EVERY 14 DAYS 2 mL 1 025 Active Needle, Disp, (B-D BLUNT FILL NEEDLE) 18G X 1-2 miscIndicatio ns:Gender dysphoria 1 each every 14 (fourteen) days. 24 each 3 025 Active Needle, Disp, (BD Eclipse Needle) 25G X 5/8 miscIndicatio ns:Gender dysphoria Use weekly 25 each 025 Active Syringe/Needl e, Disp, (BD Eclipse Syringe) 25G X 1 3 ML miscIndicatio ns:Gender dysphoria Use to inject testosterone every 14 days 2 each 025 Active Needle, Disp, (BD Eclipse Needle) 25G X 5/8 miscIndicatio ns:Gender dysphoria Use weekly 25 each 1 025 2024 Discontinued(R eorder (will not trigger notification to Pharmacy)) Needle, Disp, (B-D BLUNT FILL NEEDLE) 18G X 1-/2 miscIndicatio ns:Gender dysphoria 1 each every 14 (fourteen) days. 24 each 3 025 2024 Discontinued(R eorder (will not trigger notification to Pharmacy)) Syringe/Needl e, Disp, (BD Eclipse Syringe) 25G X 1 3 ML misc Use to inject testosterone every 14 days 2 each 11 025 2024 Discontinued(R eorder (will not trigger notification to Pharmacy)) [employer] ([employer] Merch[employer]ising [employer]) misc 1 each every 14 (fourteen) days. Dispose used sharps in container. 1 each 3 025 2024 Discontinued(M ed list cleanup (will not trigger notification to Pharmacy)) Testosterone Cypionate 200 MG/ML solutionIndic ations:Gender dysphoria Inject 0.5ml (100mg) IM q 14 days. Single use vials 1 mL 3 025 2024 Discontinued(M ed list cleanup (will not trigger notification to Pharmacy)) Active Problems Problem Noted Date Diagnosed Date [...] BMP, CBC, A1C and Vit D 12/10/24 Gender dysphoria 12/10/2024 Overview (04/08/2025): Kishore meets DSM-5 criteria for gender dysphoria. He has expressed a persistent and well-documented experience of incongruence between their gender identity and assigned sex at . Kishore has has demonstrated capacity to make informed decisions regarding hormone therapy. He is aware of the potential risks, benefits, and irreversible effects of treatment. Kishore has no contraindications identified for initiating hormone therapy per the Endocrine Society 2017 Guidelines Endocrine Treatment of Gender-Dysphoric/Gender Incongruent Persons Kishore has been identifying as male and has expressed constant and persistent desire to transition from female to male since he can remember and has desired transition since age 10. Over the last two years, after reaching the age of 17, he has been pursuing medical transition options. His gender identity has been explored with the support of the patient's mother who has been supportive throughout the process and his therapist. He has been following with a therapist in [facility]. -discussed getting letter from therapist for appropriating further progression into breast augmentation surgery 12/10/24 -start testosterone cypionate 200mg/ml 0.5ml IM q 2 weeks started 12/16/24 -check labs 1 month -we reviewed fertility preservation options; patient declined egg banking -discussed need for contraception if with a partner who is capable of getting , he would like referral for IUD, using condoms 100% of the times. -continue testosterone cypionagte 200mg/ml; 100 IM q 2 weeks started 12/16/24 -titrate to goal testosterone 350-700mg fpc Assessment & Plan (04/08/2025 3:20 PM EDT): Kishore meets DSM-5 criteria for gender dysphoria. He has expressed a persistent and well-documented experience of incongruence between their gender identity and assigned sex at . Kishore has has demonstrated capacity to make informed decisions regarding hormone therapy. He is aware of the potential risks, benefits, and irreversible effects of treatment. Kishore has no contraindications identified for initiating hormone therapy per the Endocrine Society 2017 Guidelines Endocrine Treatment of Gender-Dysphoric/Gender Incongruent Persons Kishore has been identifying as male and has expressed constant and persistent desire to transition from female to male since he can remember and has desired transition since age 10. Over the last two years, after reaching the age of 17, he has been pursuing medical transition options. His gender identity has been explored with the support of the patient's mother who has been supportive throughout the process and his therapist. He has been following with a therapist in [facility],. -discussed getting letter from therapist for appropriating further progression into breast augmentation surgery 12/10/24 -start testosterone cypionate 200mg/ml 0.5ml IM q 2 weeks started 12/16/24 -check labs 1 month -we reviewed fertility preservation options; patient declined egg banking -discussed need for contraception if with a partner who is capable of getting , he would like referral for IUD, using condoms 100% of the times. -continue testosterone cypionagte 200mg/ml; 100 IM q 2 weeks started 12/16/24 -titrate to goal testosterone 350-700mg fpc Orders: Needle, Disp, (B-D BLUNT FILL NEEDLE) 18G X 1-1/2 misc; 1 each every 14 (fourteen) days. Needle, Disp, (BD Eclipse Needle) 25G X 5/8 misc; Use weekly Syringe/Needle, Disp, (BD Eclipse Syringe) 25G X 1 3 ML misc; Use to inject testosterone every 14 days Hepatic Function Panel; Future CBC; Future Testosterone, Total, males (Adult), IA; Future hCG, Total, Quantitative; Future Assessment & Plan (12/30/2024 2:31 PM EDT): Kishore meets DSM-5 criteria for gender dysphoria. He has expressed a persistent and well-documented experience of incongruence between their gender identity and assigned sex at . Kishore has has demonstrated capacity to make informed decisions regarding hormone therapy. He is aware of the potential risks, benefits, and irreversible effects of treatment. Kishore has no contraindications identified for initiating hormone therapy per the Endocrine Society 2017 Guidelines Endocrine Treatment of Gender-Dysphoric/Gender Incongruent Persons Kishore has been identifying as male and has expressed constant and persistent desire to transition from female to male since he can remember and has desired transition since age 10. Over the last two years, after reaching the age of 17, he has been pursuing medical transition options. His gender identity has been explored with the support of the patient's mother who has been supportive throughout the process and his therapist. He has been following with a therapist in [facility]. -Discussed hormone replacement therapy, surgical interventions and family planning. -Interested in starting hormone replacement, breast augmentation, changing his name and control. -discussed to Manas Bedolla for control options 12/10/24 -discussed getting letter from therapist for appropriating further progression into breast augmentation surgery 12/10/24 -start testosterone cypionate 200mg/ml 0.5ml IM q 2 weeks started 12/16/24 -check labs 1 month -education reviewed: we reviewed our informed consent that includes expected physical changes, timeline, and reversible and irreversible effects including but not limited to: deepening voice, increased muscle mass, amenorrhea, increased body hair, enlargement of clitoris, mood effects, unknown effects on fertility -we reviewed fertility preservation options; patient declined egg banking -discussed need for contraception if with a partner who is capable of getting -provided written informed consent for hormone therapy -reinforced importance of medication adherence and follow-up -reviewed need for baseline labs and regular monitoring; expected time lines in terms of desired effects -baseline labs ordered Medication Start: -start testosterone cypionagte 200mg/ml; 100 IM q 2 weeks 1 12/16/24 -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 Over the last two [...] for follow-up to discuss further treatment options. -discussed to Manas Bedolla for control options 12/10/24 [...] for Prep disused, -condoms offered -referred to [facility]. 12/10/24 Assessment & Plan (04/08/2025 3:20 PM EDT): Orders: Referral to Gynecology ([facility]); Future Lipid Panel, Standard; Future Assessment & Plan (12/10/2024 10:40 AM EDT): -pt does not desire within the next 12 months -discussed efficacies, benefits and risks of available contraceptive means available including IUD, subdermal implantable device, injection, combination oral contraceptives, patch, vaginal ring and condoms. -patient interested in IUD. -indications for Prep disused, -condoms offered -referred to [facility] Malagon. 12/10/24 Vitamin D deficiency 12/10/2024 Overview (12/10/2024): Lab Results Component Value Date [id number] 24.1 (L) 12/10/2024 -daily vit D started 12/10/24 Assessment & Plan (04/08/2025 3:20 PM EDT): Orders: Vitamin D, 25-Hydroxy, Total, Immunoassay; Future Elevated LFTs 12/10/2024 Overview (12/10/2024): Lab Results Component Value Date AST 27 12/10/2024 ALT 44 (H) 12/10/2024 TOTALBILIRUB 0.2 12/10/2024 PLT 423 (H) 12/10/2024 CREATININE 0.57 12/10/2024 NA 141 12/10/2024 Assessment & Plan (04/08/2025 3:20 PM EDT): Other specified health status 09/11/2024 Overview (12/10/2024): -next comprehensive annual evaluation due after 12/10/24 -Not seeing eyeglass inspector. -Dental home encouraged 12/10/24. -[facility] care proxy given and filed 12/10/24 Assessment & Plan (12/10/2024 10:19 AM EDT): -next comprehensive annual evaluation due after 12/10/24 -Not seeing eyeglass inspector. -Dental home encouraged 12/10/24. -amaris care proxy [...] be related. Discussed. Family is connected to [facility] for therapy and med management. Assessment & Plan (12/10/2024 10:34 AM EDT): History of ongoing problems with anxiety and depression. Now describes occasional panic attacks with tachycardia, shakiness, chest pain. Sleep issues also noted which are likely to be related. Discussed. Family is connected to [facility] for therapy and med management. Pure hypercholesterolemia 04/25/2016 Overview (12/10/2024): Lab Results Component Value Date CHOL 195 12/10/2024 TRIG 195 (H) 12/10/2024 HDL 40 (L) 12/10/2024 LDLCHOLCAL 116 (H) 12/10/2024 -continue lifestyle modification Assessment & Plan (04/08/2025 3:20 PM EDT): Assessment & Plan (12/10/2024 10:54 AM EDT): PMH + elevated cholesterol. -ordered HFP and FLP 12/10/24 Elevated TSH 04/25/2016 Overview (12/10/2024): Lab Results Component Value Date TSH 4.26 (H) 12/10/2024 Assessment & Plan (04/08/2025 3:20 PM EDT): Orders: TSH W/Reflex to FT4; Future Assessment & Plan (12/10/2024 10:54 AM EDT): [...] Problem Noted Date Diagnosed Date Resolved Date Dietary counseling 12/10/2024 Assessment & Plan (12/10/2024 [...] saturated fat, and sodium. Exercise counseling 12/10/2024 02/18/20 Assessment & Plan (12/10/2024 10:20 AM EDT): Exercise Recommendations: At least 150 minutes of moderate-intensity physical activity per week, or an equivalent combination of moderate- and vigorous-intensity activity. Gender dysphoria in adult 12/10/2024 Assessment & Plan (12/10/2024 10:47 AM EDT): [...] treatment. -been following with a therapist in [facility], not specializing in gender-affirming care, but has been open and supportive with patients discussions. Encounters Date Type Department Care Team Description 04/08/2025 3:00 PM EDT Telemedicine [facility] [address] [place] [phone] Jing Patel MD Gender dysphoria (Primary Dx); Family planning; Routine screening for STI (sexually transmitted infection); Pure hypercholesterolemia; Elevated TSH; Vitamin D deficiency; Elevated LFTs 04/08/2025 Travel 04/08/2025 Orders Only [facility] [address] [place] [phone] Jing Patel MD 04/05/2025 Refill [facility] [address] [place] [address] [phone] Jing Patel MD Gender dysphoria 03/25/2025 Refill [facility] [address] [place] [phone] Jing Patel MD Gender dysphoria 02/17/2025 Telephone [facility] [address] [place] [address] [phone] Jing Patel MD Appointment Request; Lab Orders 02/11/2025 Refill [facility] [address] [place] [phone] Jnig Patel MD Gender dysphoria 02/02/[address] [phone] Betty Hayward, brim blocker Question from Last 3 Months Immunizations Immunization Administration Dates Next Due DTaP [...] Q2 Not on file 09/16/2024 Comments Unknown Intention Date Recorded No desire to become (finding) 0 04/08/2025 Sex and Gender Information Value Date Recorded Sex Assigned at Female 07/09/2022 10:20 AM EDT Legal Sex Female 10:20 AM EDT Gender Identity Male 12/10/2024 10:20 AM EDT Sexual Orientation Choose not to disclose 2021 10:20 AM EDT Last Filed Vital Signs Vital Sign Reading Time Taken Comments Blood Pressure 130/84 12/16/2024 11:10 AM EDT Pulse 97 12/16/2024 11:10 AM EDT Temperature 36.9 C (98.5 F) 12/16/2024 11:10 AM EDT Respiratory Rate 20 12/16/2024 11:10 AM EDT Oxygen Saturation 98% 12/16/2024 11:10 AM EDT Inhaled Oxygen Concentration - - Weight 93.5 kg (206 lb 3.2 oz) 12/16/2024 11:10 AM EDT Height 156.8 cm (5' 1.75 ) 12/10/2024 10:04 AM E DT Body Mass Index 38.02 12/10/2024 10:04 AM EDT Plan of Treatment Upcoming Encounters Date Type Department Care Team (Late st Contact Info) Description 05/24/2025 9:45 AM EDT Office Visit [facility] [address] [place] [address] Jing Patel MD [address] [place] [address] Health Maintenance Due Date Last Done Comments Meningococcal B Vaccine (1 of 2 - Standard) 2020 COVID-19 Vaccine (4 - season) 2024 08/08/2023, 04/12/2021, 03/22/2021 Influenza Vaccine (#1) 2025 , 08/18/2021, 06/22/2020, Additional history exists Depression Monitoring 06/11/2025 12/10/2024, 025 Alcohol/Substance Use Screening 12/10/2025 12/10/2024 Chlamydia and Gonorrhea Screening 12/10/2025 12/10/2024 Disability Screening 12/10/2025 12/10/2024 SDOH Screening 12/10/2025 12/10/2024 Family Planning (PISQ) 04/08/2026 04/08/2025 Tobacco Screening 04/08/2026 04/08/2025 DTaP/Tdap/Td Vaccines (7 - Td or Tdap) 10/10/2027 10/10/2017, 09/14/2009, 09/26/2006, Additional history exists Lipid Panel 12/10/2029 12/10/2024 Zoster Vaccines (1 of 2) 2054 RSV Patients and Patients Aged 60 years or older (1 - 1-dose 75+ series) 11/14/2079 Hepatitis B Vaccines Completed 11/20/2005, 01/22/2005, 2004 Pneumococcal Vaccine: Pediatrics (0 to 5 Years) and At-Risk Patients (6 to 49) Years Aged Out 11/20/2005, 04/12/2005, 01/22/2005 No longer eligible based on patient's age to complete this topic HIB Vaccines Completed 09/14/2009, 11/07, 11/20/2005, Additional history exists IPV Vaccines Completed 09/14/2009, 02/2010, 04/02/2006, Additional history exists Meningococcal Vaccine Aged Out 12/16/2018 No nuria chantal eligible based on patient's age to complete this topic HPV Vaccines Completed 06/22/2020, 12/16/2018 Hepatitis A Vaccines Completed 06/22/2020, 12/17/19 19 HIV Screening Completed 12/10/2024 Hepatitis C Screening Completed 12/10/2024 RSV under 20 months Aged Out No longe r eligible based on patient's age to complete this topic Rotavirus Vaccines Aged Out No longer eligible based on patient's age to complete this topic Procedures Procedure Name Priority Date/Time Associated Diagnosis Comments HEPATITIS C AB W/REFL TO HCV RNA, QN, PCR Routine 12/10/2024 11:12 AM EDT Routine screening for STI (sexually transmitted infection) HIV 1/2 ANTIGEN/ANTIBODY, FOURTH GENERATION W/RFL Routine 12/10/2024 11:12 AM EDT Routine screening for STI (sexually transmitted infection) LIPID PANEL, STANDARD Routine 12/10/2024 11:12 AM EDT Pure hypercholesterolemia CHLAMYDIA/N. GONORRHOEAE RNA, TMA, UROGENITAL Routine 12/10/2024 11:12 AM EDT Routine screening for STI (sexually transmitted infection) from Last 3 Months or Most Recently Relevant to Health Maintenance Results * Hepatitis C Antibody with Reflex to HCV, RNA, Quantitative, Real-Time PCR (12/10/2024 11:12 AM EDT) Hepatitis C Antibody Nonreactive Nonreactive [facility] Comment:Antibodies to HCV no t detected; does not exclude early acuteHCV infection. Blood Venous blood specimen / Unknown 12/10/2024 11:12 AM EDT 12/10/2024 1:26 PM EDT us Jing Patel MD LAB BLOOD ORDERABLES Final Result [facility] [address] [place] [phone] * Chlamydia/N. Gonorrhoeae RNA, TMA, Urine (12/10/2024 11:12 AM EDT) CT PCR NOT DETECTED Not Detect. [facility] Comment:A not detected test result does not exclude the possibilityof infection because test results can be affected byimproper specimen collection, concurrent antibiotic therapy,or the number of organisms in the specimen which may bebelow the sensitivity of the test. As with many diagnostictests, results from the Xpert CT/NG assay should beinterpreted in conjunction with other laboratory andclinical data available to the clinician.Xpert CT/NG performance has not been evaluated in patientsless than 14 years of age. The assay should not be used forthe evaluationof suspected sexual abuse or for other medico-legalindications. Additional testing is recommended in anycircumstance when false positive or false negative resultscould lead to adverse medical, social or psychologicalconsequences. NG PCR NOT DETECTED Not Detect. [facility] Comment:A not detected test result does not exclude the possibilityof infection because test results can be affected byimproper specimen collection, concurrent antibiotic therapy,or the number of organisms in the specimen which may bebelow the sensitivity of the test. As with many diagnostictests, results from the Xpert CT/NG assay should beinterpreted in conjunction with other laboratory andclinical data available to the clinician.Xpert CT/NG performance has not been evaluated in patientsless than 14 years of age. The assay should not be used forthe evaluationof suspected sexual abuse or for other medico-legalindications. Additional testing is recommended in anycircumstance when false positive or false negative resultscould lead to adverse medical, social or psychologicalconsequences. Urine (Urine, Random) 12/10/2024 11:12 AM EDT 12/10/2024 1:19 PM EDT Narrative [facility] - 12/10/2024 4:43 PM EDT Urine us Jing Patel MD LAB MICROBIOLOGY - GENERAL ORDERABLES Final Result [facility] [address] [place] [phone] * HIV-1/2 Antigen and Antibodies, Fourth Generation, with Reflexes (12/10/2024 11:12 AM EDT) HIV AB/AG Nonreactive Nonreactive [facility] Comment:HIV-1 p24 Ag and/or HIV-1/HIV-2 Ab not detected.A test result that is nonreactive does not exclude thepossibility of exposure to or infection with HIV-1 and/orHIV-2. Nonreactive results in this assay for individualswith prior exposure to HIV-1 and/or HIV-2 may be due toantigen and antibody levels that are below the limit ofdetection of this assay.The [facility] HIV Ag/Ab Combo assay result andsupplemental assay results should be interpreted inconjunction with the patient's clinical presentation,history and other laboratory results. If the results areinconsistent with clinical evidence, additional testing issuggested to confirm the result. Blood Venous blood specimen / Unknown 12/10/2024 11:12 AM EDT 12/10/2024 1:26 PM EDT us Jing Patel MD LAB BLOOD ORDERABLES Final Result [facility] [address] [place] [phone] * (ABNORMAL) Lipid Panel, Standard (12/10/2024 11:12 AM EDT) Triglycerides 195(H) <150 mg/dL [facility] Comment:Slight Lipemia.Lakesha able Triglyceride: less than 150 mg/dLBorderline High Triglyceride 150-199 mg/dLHigh Triglyceride: 200-499 mg/dLVery High Triglyceride: greater than or equal to 5OO mg/dL Cholesterol 195 <200 mg/dL [facility] Comment:Desirable Cholestero l: less than 200 mg/dLBorderline High Cholesterol: 200-239 mg/dLHigh Cholesterol: greater than 239 mg/dL LDL Cholesterol Calculated 116(H) <100 mg/dL [facility] Comment:Desirable LDL: less than 100 mg/dLNear Optimal/Above Optimal LDL: 110- 129 mg/dLBorderline High LDL: 130-159 mg/dLHigh LDL: 160-189 mg/dLVery High LDL: greater than or equal to 190 mg/dL HDL Cholesterol 40(L) >40 mg/dL [facility] Comment:Desirable HDL: great er than 40 mg/dL Note: This HDL assay may give artificially low results in patients with liver disease. Blood Venous blood specimen / Unknown 12/10/2024 11:12 AM EDT 12/10/2024 1:30 PM EDT us Jing Patel MD LAB BLOOD ORDERABLES Final Result [facility] [address] [place] [phone] from Last 3 Months or Most Recently Relevant to Health Maintenance Insurance [facility] C3 Advance Directives Documents on File Type Date Recorded Patient Measurement Supervisor Expl anation Advance Directives and Living Will 12/14/2024 9:22 AM Health Care Proxy Care Teams Computer Network Specialist Relationship Specialty Start Date End Date Jing Patel MD [address] [place] [address] [phone] PCP - General Family Medicine 08/27/24
[2025-04-14 16:42] LABS: Hematocrit 39.8 % (37.0-47.0); Hemoglobin 12.4 g/dl (12.0-16.0); Mean Corpuscular HGB Conc 31.2 g/dl (31.0-35.0); Mean Corpuscular Hemoglobin 24.1 pg (27.0-33.0); Mean Corpuscular Volume 77.3 fL (80.0-98.0); NRBC Abs Auto 0.000 X10*3/uL (0.0-0.012); NRBC Pct Auto 0.0 /100WBC (0.0-0.2); Platelet Count 474 X10*3/uL (160-400); Red Blood Count 5.15 X10*6/uL (4.20-5.50); White Blood Count 10.5 X10*3/uL (4.8-10.8)
[2025-04-14 17:04] LABS: Alanine Aminotransferase 24 U/L (0-31); Albumin Level 4.6 g/dL (3.5-5.0); Alkaline Phosphatase 80 U/L (39-117); Aspartate Amino Transferase 42 U/L (5-31); Cholesterol 187 mg/dL (<200); HDL Cholesterol 35 mg/dL (>40); Total Protein 7.7 g/dL (6.5-8.0); Triglycerides 174 mg/dL (<150)
[2025-04-15 12:24] LABS: CT PCR Urine NOT DETECTED (Not Detect.); NG PCR Urine NOT DETECTED (Not Detect.)
== END 2025-04-14 13:21 | disposition home or self-care (01) ==
LOC: HO.HHCL 13:20
PROVIDERS: PCP Family Medicine; Visit Provider Family Medicine
DX: Z11.3 Encounter for screening for infections with a predominantly sexual mode of transmission (principal); Z11.8 Encounter for screening for other infectious and parasitic diseases; F64.9 Gender identity disorder, unspecified; R79.89 Other specified abnormal findings of blood chemistry; E55.9 Vitamin D deficiency, unspecified
CPT/HCPCS: 80061; 80076; 82306; 84403; 84443; 84702; 85027; 87491; 87591